=== PATIENT | male | born 1975 | race Native Hawaiian/Other Pacific Islander ===

== ENCOUNTER 2022-10-25 16:05 | Emergency (ER) | payer OTHER ==
[~2022-10-25] VITALS: Ht 188 cm; Wt 108.9 kg
[2022-10-25 16:08] VITALS: TEMP 98.2
[2022-10-25 16:27] LABS: PLATELET COUNT 363 K/uL (142-355)
[2022-10-25 16:37] LABS: POTASSIUM 3.2 mmol/L (3.6-5.2)
[2022-10-25 16:46] LABS: PARTIAL THROMBOPLASTIN TIME 27.4 SECONDS (23.9-36.7)
[2022-10-25 18:00] VITALS: BP 152/95
== END 2022-10-25 18:10 | disposition home or self-care (01) ==
LOC: ED 16:05
PROVIDERS: Family Medicine
DX: R07.9 Chest pain, unspecified (principal); R51.9 Headache, unspecified; T67.5XXA Heat exhaustion, unspecified, initial encounter; I10 Essential (primary) hypertension; F19.10 Other psychoactive substance abuse, uncomplicated
CPT/HCPCS: 80053; 80307; 81000; 84484; 85027; 85610; 85730; 93005; 99283

== ENCOUNTER 2022-10-26 19:36 | Emergency (ER) | payer OTHER ==
[~2022-10-26] VITALS: Ht 188 cm; Wt 113.4 kg
[2022-10-26 19:40] VITALS: TEMP 98.5
[2022-10-26 20:09] LABS: PLATELET COUNT 337 K/uL (142-355)
[2022-10-26 20:14] LABS: POTASSIUM 3.8 mmol/L (3.6-5.2)
[2022-10-26 22:30] VITALS: BP 138/93
== END 2022-10-26 22:17 | disposition home or self-care (01) ==
LOC: ED 19:36
PROVIDERS: Family Medicine
DX: R07.89 Other chest pain (principal); F19.10 Other psychoactive substance abuse, uncomplicated
CPT/HCPCS: 36415; 80053; 84484; 85027; 93005; 99283